=== PATIENT | male | born 1990 | race Caucasian/White ===

== ENCOUNTER 2021-10-18 10:00 | Observation (INO) | payer OTHER, SELFPAY ==
[2021-10-18 10:04] VITALS: BP 158/92; PULSE 78; RESP 19; TEMP 36.6; O2SAT 98; BMI 20.2
[2021-10-18 12:41] LABS: MANUAL DIFF FLAG NO
[2021-10-18 12:45] LABS: Basophils Percent Auto 0.1 % (0-2); Eosinophils Percent Auto 0.3 % (0-4); Hematocrit 46.4 % (42.0-52.0); Hemoglobin 15.6 g/dl (14.0-18.0); Imm Gran Abs Auto 0.05 X10*3/uL (0.00-0.03); Imm Gran Pct Auto 0.3 % (0.0-0.4); Lymphocytes Absolute Auto 1.9 X10*3/uL (1.2-4.9); Lymphocytes Percent Auto 12.5 % (20-40); Mean Corpuscular HGB Conc 33.6 g/dl (31.0-36.0); Mean Corpuscular Hemoglobin 29.5 pg (27.0-33.0); Mean Corpuscular Volume 87.9 fL (80.0-98.0); Mean Platelet Volume 10.6 fL (9.4-12.4); Monocytes Absolute Auto 1.1 X10*3/uL (0.1-1.2); Monocytes Percent Auto 6.9 % (2-11); Neutrophils Absolute Auto 12.3 x10*3/uL (2.0-8.3); Neutrophils Percent Auto 79.9 % (45-73); Platelet Count 258 X10*3/uL (160-400); Red Blood Count 5.28 X10*6/uL (4.60-5.80); Red Cell Distribution Width 14.1 % (11.0-16.0); White Blood Count 15.4 X10*3/uL (4.8-10.8)
[2021-10-18 13:00] LABS: Alanine Aminotransferase 14 U/L (0-40); Albumin Level 5.6 g/dL (3.5-5.0); Alkaline Phosphatase 127 U/L (39-117); Anion Gap 19 (12-20); Aspartate Amino Transferase 37 U/L (5-37); Bilirubin Direct 0.5 mg/dL (0.0-0.5); Bilirubin Total 1.2 mg/dL (0.0-1.0); Blood Urea Nitrogen 38 mg/dL (9-16); Calcium 10.6 mg/dL (8.4-10.2); Carbon Dioxide 26 mmol/L (22-29); Chloride 90 mmol/L (96-108); Creatinine Clr Calc Pharmacy 38.1; Estimated Glomerular Filt Rate 29; Glucose Random 116 mg/dL (60-115); Lipase 18 U/L (8-78); Potassium 4.3 mmol/L (3.3-5.1); Sodium 131 mmol/L (135-145)
--- NOTE | 2021-10-18 13:36 | ED.GENADULT ---
HPI - General Adult General Chief complaint: General Medical Stated complaint: Dehydrated Work Comp Time Seen by Provider: 10/18/21 13:36 Source: patient Mode of arrival: ambulatory Limitations: no limitations History of Present Illness HPI narrative: Patient is a 31 year old male presenting to the emergency department today with nausea/vomiting after being out on a hot roof all day yesterday. Patient states that he was etta all day yesterday and got very hot, causing him to vomit and he is continuing to have nausea. Patient denies any dizziness, lightheadedness, abdominal pain, fever, chills, blurry vision, double vision, loss of vision, chest pain, difficulty breathing, shortness of breath, back pain, night sweats, pain with urination, increased urinary frequency, increased urinary urgency, blood in his urine or stool, syncope or a near syncopal episode, recent trauma or falls, bowel incontinence, bladder incontinence, bowel retention, bladder retention, or any other complaints at this time. Patient states that he does not have any medical history. Onset (ago): day(s) (1) Severity: mild Severity scale (1-10): 3 Relieving factors: none Exacerbating factors: none Associated symptoms: nausea/vomiting Treatments prior to arrival: none Related Data Home Medications Medication Instructions Recorded Confirmed No Known Home Meds 10/18/21 10/18/21 Allergies Allergy/AdvReac Type Severity Reaction Status Date / Time No Known Allergies Allergy Verified 10/18/21 13:37 Review of Systems Constitutional: Constitutional: Reports no additional constitutional complaints, Denies chills, Denies fever(s) and Denies night sweats Eyes: Eyes: Reports no additional eye complaints, Denies blurry vision, Denies change in vision, Denies diplopia, Denies eye discharge, Denies loss of vision and Denies eye pain ENT: Denies dizziness Cardiovascular: Cardiovascular: Reports no additional cardiovascular complaints, Denies chest pain, Denies lightheadedness, Denies Loss of Consciousness and Denies dyspnea Respiratory: Respiratory: Reports no additional respiratory complaints and Denies dyspnea Gastrointestinal: Gastrointestinal: Reports no additional gastrointestinal complaints, Denies abdominal pain, Denies melena, Denies hematochezia, Denies change in bowel habits, Denies change in stool character, Reports nausea and Reports vomiting Genitourinary: Genitourinary: Reports no additional male genitourinary complaints, Denies hematuria, Denies oliguria, Denies difficulty urinating, Denies dysuria, Denies urinary frequency, Denies urinary hesitancy, Denies urinary incontinence and Denies urinary urgency Musculoskeletal: Musculoskeletal: Reports no additional musculoskeletal complaints, Denies numbness and Denies tingling Neurologic: Denies dizziness, Denies loss of vision, Denies numbness and Denies tingling Psychiatric: Psychiatric: Reports no additional psychiatric complaints Endocrine: Endocrine: Reports no additional endocrine complaints Hematologic/Lymphatic: Hematologic/Lymphatic: Reports no additional hematologic/lymphatic complaints Allergic/Immunologic: Allergic/Immunologic: Reports no additional allergic/immunologic complaints [facility] Past Medical History Attestation statement: The following information was validated with the patient. Source: old records reviewed Social History Social History Alcohol intake: unknown Patient Tobacco Use Status: Current everyday Tobacco user Smoked in Last 30 Days: Yes Use of substances other than those prescribed or required for medical reasons: No Advance Directives: No Advance Directives Information Provided: No Physical Exam ED Vital Signs: Vital Signs - 24 hr 10/18/21 10:04 10/18/21 14:16 Temperature 98 F 98.6 F Pulse Rate 78 73 Respiratory Rate 19 18 Blood Pressure 158/92 H 159/69 H Pulse Oximetry 98 100 Oxygen Delivery Method Room Air Room Air BMI result Body Mass Index 20.2 Const General: cooperative, no acute distress, alert and awake Nutritional Appearance: well nourished Orientation/consciousness: patient oriented x3 Limitations: no limitations [facility] Head: Yes normal to inspection and Yes atraumatic Ears: hearing grossly normal bilaterally and external ears normal General nose exam: Normal external nose present, no nasal discharge noted and no epistaxis Face and sinus: Yes normal facial exam, No abrasion and No laceration Mouth: Normal oral and palatal mucosa present, no drooling and no muffled voice Eyes General: appearance normal, both eyes and all related structures Periorbital: periorbital findings normal Eyelids: Yes eyelids normal Conjunctivae: conjunctivae normal Pupils: Equal, round and reactive pupils present EOM: EOMs intact bilaterally Neck Neck: Yes normal visual inspection, Yes full ROM and Yes no lymphadenopathy Chest Chest palpation & inspection: normal inspection of the chest Resp Effort & Inspection: normal respiratory effort and able to speak in complete sentences Auscultation: clear to auscultation bilaterally Cardio Rate: regular rate Rhythm: regular rhythm GI Inspection: Yes normal to inspection Palpation (GI): Soft to palpation, not firm, nontender and no guarding Neuro General: patient oriented x3 and moves all extremities Cranial nerves: Yes Equal, round and reactive pupils present Cognition (Neuro): normal cognition Motor exam (neuro): 5/5 motor strength present throughout Sensory Exam: Normal double simultaneous stimulation for sensation Coordination: [id number] test normal Extrem General: Yes normal to inspection, Yes full ROM and Yes capillary refill normal Psych Appearance: grossly normal Mental Status: mental status grossly normal Affect: normal affect Attitude: cooperative Thought process: Normal thought process present Thought content: Normal thought content present Insight: Good insight present (Psych) Medical Decision Making MDM Narrative Medical decision making narrative: Patient is a 31 year old male presenting to the emergency department today with nausea and vomiting. Patient's physical exam was unremarkable. Patient's blood work showed an elevated WBC count at 15.4, an elevated BUN of 38, and an elevated creatinine of 2.56. Patient's sodium was decreased at 131. Patient's urine showed no acute process. Patient's EKG was unremarkable. I explained my physical exam findings as well as all test results to the patient. I answered all questions asked by the patient. Patient received IV fluids and IV Zofran which he stated helped his symptoms significantly. I spoke to Dr. Smith who agreed to hospital admission. Patient verbalized agreement and understanding with this treatment plan and admission. Differential Diagnosis Differential Diagnosis: ILYA, dehydration, overheated Medical Records Medical records reviewed: Yes I reviewed the patient's medical records. Lab Data Lab results reviewed: Yes I reviewed the patient's lab results. Result diagrams: 10/18/21 12:29 10/18/21 12:29 Labs: Lab Results 10/18/21 10/18/21 Range/Units 12:29 12:29 WBC 15.4 H (4.8-10.8) X10*3/uL RBC 5.28 (4.60-5.80) X10*6/uL Hgb 15.6 (14.0-18.0) g/dl Hct 46.4 (42.0-52.0) % MCV 87.9 (80.0-98.0) fL MCH 29.5 (27.0-33.0) pg MCHC 33.6 (31.0-36.0) g/dl RDW 14.1 (11.0-16.0) % Plt Count 258 (160-400) X10*3/uL MPV 10.6 (9.4-12.4) fL Immature Gran % (Auto) 0.3 (0.0-0.4) % Neut % (Auto) 79.9 H (45-73) % Lymph % (Auto) 12.5 L (20-40) % [place] % (Auto) 6.9 (2-11) % Eos % (Auto) 0.3 (0-4) % Baso % (Auto) 0.1 (0-2) % Lymph # (Auto) 1.9 (1.2-4.9) X10*3/uL [place] # (Auto) 1.1 (0.1-1.2) X10*3/uL Eos # (Auto) 0.0 (0.0-0.4) X10*3/uL Baso # (Auto) 0.0 (0.0-0.2) X10*3/uL Abs Immat Gran (auto) 0.05 H (0.00-0.03) X10*3/uL Absolute Neuts (auto) 12.3 H (2.0-8.3) x10*3/uL Absolute Nucleated RBC 0.000 (0.0-0.012) X10*3/uL Nucleated RBC % (auto) 0.0 (0.0-0.2) /100WBC Sodium 131 L (135-145) mmol/L Potassium 4.3 (3.3-5.1) mmol/L Chloride 90 L (96-108) mmol/L Carbon Dioxide 26 (22-29) mmol/L Anion Gap 19 (12-20) BUN 38 H (9-16) mg/dL Creatinine 2.56 H (0.5-1.4) mg/dL Estim Creat Clear Calc 38.1 Estimated GFR 29 Random Glucose 116 H (60-115) mg/dL Calcium 10.6 H (8.4-10.2) mg/dL Total Bilirubin 1.2 H (0.0-1.0) mg/dL Direct Bilirubin 0.5 (0.0-0.5) mg/dL AST 37 (5-37) U/L ALT 14 (0-40) U/L Alkaline Phosphatase 127 H (39-117) U/L Total Protein 9.0 H (6.5-8.0) g/dL Albumin 5.6 H (3.5-5.0) g/dL Lipase 18 (8-78) U/L ECG Data Attestation: I personally reviewed and interpreted this ECG as follows: Prior ECG tracings: not available for review Interpretation: Vent. Rate: 072 BPM ? ? Atrial Rate: 072 BPM P-R Int: 108 ms? QRS Dur: 086 ms QT Int: 370 ms ? ? ? P-R-T Axes: 057 050 045 degrees QTc Int: 405 ms ? Sinus rhythm with short NM Early repolarization Otherwise normal ECG No previous ECGs available DD/ [id number] Critical Care Time Critical Care Time Critical Care Time: Yes Total Critical Care Time: 30 Attestation: I spent 30 minutes of Critical Care Time with this patient. This does not include time spent on separately reported billable procedures. Discharge Plan Discharge Clinical Impression: Acute kidney injury, Acute dehydration Patient Disposition: Admitted As Inpatient Prescriptions: No Action No Known Home Meds Print Language: Croatian
--- NOTE | 2021-10-18 13:48 | PC.NURSE ---
18 r ac placed and ns bolus started, alert, skin wpd, speech clear, was eating chips and water in mwr
--- NOTE | 2021-10-18 14:07 | ECG_ITS ---
Test Reason : abd pain Blood Pressure : / mmHG Vent. Rate : 072 BPM Atrial Rate : 072 BPM P-R Int : 108 ms QRS Dur : 086 ms QT Int : 370 ms P-R-T Axes : 057 050 045 degrees QTc Int : 405 ms Sinus rhythm with short FL Early repolarization Otherwise normal ECG No previous ECGs available Referred By: Carmencita Pisano Electronically Signed By:SAADIA FRAZIER MD
[2021-10-18] MEDS: ondansetron HCL 4 MG/2 ML VIAL IVPUSH (14:10)
[2021-10-18] MEDS: 0.9 % Sodium Chloride 1,000 ML 999 ML IV (14:11)
[2021-10-18 14:16] VITALS: BP 159/69; PULSE 73; RESP 18; TEMP 37; O2SAT 100
--- NOTE | 2021-10-18 14:37 | PHA.MEDREC ---
MED REC COMPLETE, PT NOT ON ANY MEDICATIONS Pharmacy Consult ? Medication Reconciliation Pharmacy has completed the medication reconciliation.
[2021-10-18 17:09] VITALS: BP 142/79; PULSE 78; RESP 16; TEMP 36.7; O2SAT 98
--- NOTE | 2021-10-18 17:26 | P.HPHOSP_ITS ---
History of Present Illness Date of Service: 10/18/21 Chief Complaint: leg cramps this is a 31-year-old otherwise healthy male who presents to the hospital with complaints of leg cramps, bilateral lower abdominal pain, and generally not feeling well with a headache and blurry vision. 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 On arriving home around 17:00 yesterday had multiple episodes of nausea vomiting and has severe cramping in his legs that made it hard for him to sleep. He went to work today, worked for about 4-5 hours and just felt worse therefore came to the hospital. he was started on IV fluids, reports that he is feeling better currently but still has some cramps in his feet. He otherwise denies any headache at this time, no chest pain, no shortness of breath, abdominal pain has not resolved, no diarrhea constipation, reports that he had decreased urine output yesterday and this morning but has now improved after IV fluids. On arrival to the ED hemodynamically stable with no significant abnormal vitals except for an elevated blood pressure 158/92 Labs are significant for WBC count of 15.4, sodium of 131, creatinine of 2.56, BUN of 38, with no previous for comparison CPK of 841. patient started on IV fluids will be admitted for further management Review of Systems Review of Systems: Yes all other systems are reviewed and are negative [facility] Medical History (Updated 10/18/21 @ 18:22 by Tasha Sears MD) No pertinent past medical history Family History (Updated 10/18/21 @ 18:22 by Tasha Sears MD) Other No family history of coronary artery disease Surgical History (Updated 10/18/21 @ 18:22 by Tasha Sears MD) No pertinent past surgical history Social History Alcohol intake: unknown Patient Tobacco Use Status: Current everyday Tobacco user Smoked in Last 30 Days: Yes Use of substances other than those prescribed or required for medical reasons: No Advance Directives: No Advance Directives Information Provided: No Meds Allergies Allergy/AdvReac Type Severity Reaction Status Date / Time No Known Allergies Allergy Verified 10/18/21 13:37 Active Medications: Current Medications Sodium Chloride (Ns) 1,000 mls @ 999 mls/hr IV .Q1H1M ONE Stop: 10/18/21 18:24 Home Medications Medication Instructions Recorded Confirmed Last Taken Type No Known Home Meds 10/18/21 10/18/21 Unknown History Physical Exam Vital Signs and Narrative: Vital Signs: Last Vital Signs Temp 98.1 F 10/18/21 17:09 Pulse 78 10/18/21 17:09 Resp 16 10/18/21 17:09 BP 142/79 H 10/18/21 17:09 Pulse Ox 98 10/18/21 17:09 O2 Del Method 10/18/21 17:09 BMI result Body Mass Index 20.2 Const: General: cooperative and no acute distress Orientation/consciousness: patient oriented x3 Eyes: General: appearance normal, both eyes and all related structures Resp: Effort & Inspection: normal respiratory effort Auscultation: clear to auscultation bilaterally Cardio: Rate: regular rate Rhythm: regular rhythm GI: Other: abdomen is nontender, no rebound or guarding Palpation (GI): Soft to palpation Auscultation: normal bowel sounds Skin: General skin exam: no rashes or lesions noted Neuro: General: patient oriented x3 Cognition (Neuro): normal cognition Extrem: General: Yes normal to inspection and Yes no pedal edema Results Labs CBC and Chem 7: 10/18/21 12:29 10/18/21 17:34 Labs: Laboratory Results - last 24 hr 10/18/21 10/18/21 12:29 12:29 MCV 87.9 MCH 29.5 MCHC 33.6 RDW 14.1 Plt Count 258 MPV 10.6 Immature Gran % (Auto) 0.3 Neut % (Auto) 79.9 H Lymph % (Auto) 12.5 L [place] % (Auto) 6.9 Eos % (Auto) 0.3 Baso % (Auto) 0.1 Lymph # (Auto) 1.9 [place] # (Auto) 1.1 Eos # (Auto) 0.0 Baso # (Auto) 0.0 Abs Immat Gran (auto) 0.05 H Absolute Neuts (auto) 12.3 H Absolute Nucleated RBC 0.000 Nucleated RBC % (auto) 0.0 Anion Gap 19 Estim Creat Clear Calc 38.1 Estimated GFR 29 Random Glucose 116 H Calcium 10.6 H Total Bilirubin 1.2 H Direct Bilirubin 0.5 AST 37 ALT 14 Alkaline Phosphatase 127 H Total Protein 9.0 H Albumin 5.6 H Lipase 18 Assessment and Plan (1) Acute kidney injury: Status: Acute (2) Acute dehydration: Status: Acute (3) Rhabdomyolysis: Status: Acute Plan this is a healthy 31-year-old male 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
[2021-10-18] MEDS: Nicotine 21 MG PATCH.TD24 TRANSDERMA (17:38)
[2021-10-18] MEDS: 0.9 % Sodium Chloride 1,000 ML 100 ML IVCONT (17:39)
[2021-10-18 17:59] LABS: Anion Gap 16 (12-20); Blood Urea Nitrogen 32 mg/dL (9-16); Calcium 9.3 mg/dL (8.4-10.2); Carbon Dioxide 25 mmol/L (22-29); Chloride 97 mmol/L (96-108); Creatinine Clr Calc Pharmacy 54.6; Estimated Glomerular Filt Rate 44; Glucose Random 112 mg/dL (60-115); Potassium 4.3 mmol/L (3.3-5.1); Sodium 134 mmol/L (135-145)
[2021-10-18 19:35] VITALS: BP 143/69; PULSE 76; RESP 16; TEMP 36.6; O2SAT 98
[2021-10-18 21:11] VITALS: BP 122/53; PULSE 62; RESP 16; TEMP 36.7; O2SAT 98
[2021-10-18 21:46] LABS: Appearance Urine CLEAR; Color Urine YELLOW; Glucose Urine UA NEG (NEG); Leukocyte Esterase Urine NEG (NEG); Nitrite Urine NEG (NEG); Specific Gravity - Urine 1.025 (1.005-1.025); UACC Culture Trigger NO; Urine Blood TRACE (NEG); Urine Ketones NEG (NEG); Urine Protein NEG (NEG-TRACE)
[2021-10-18 21:53] LABS: RBC Urine 0-2 /HPF (0); Squamous Epithelial Cell Urine TRACE /LPF
[2021-10-18 22:06] LABS: Osmolality Urine 664 mosm/kg (373-1093)
[2021-10-18 23:48] VITALS: BP 130/59; PULSE 62; RESP 18; TEMP 36.9; O2SAT 99
[2021-10-19 01:57] LABS: COVID-19 Test Negative (Negative)
[2021-10-19] MEDS: 0.9 % Sodium Chloride 1,000 ML 100 ML IVCONT (03:57)
[2021-10-19 06:55] VITALS: BP 146/92; PULSE 64; RESP 16; O2SAT 98
[2021-10-19] MEDS: 0.9 % Sodium Chloride Flush 3 ML SYRINGE IVFLUSH (08:22)
--- NOTE | 2021-10-19 08:24 | PC.NURSE ---
patient a/ox4. pearrla . lungs clear . skin pink warm and dry . no c/o dizziness or nausea . patient resting comfortably . aware of plan of care for admission .
--- NOTE | 2021-10-19 10:40 | MHC.CM.PN ---
Met with patient in regards to discharge planning. Patient lives with his mother, ambulates independently and had no services prior to coming to the hospital. No services anticipated to be needed because patient is not homebound. Patient denies having a PCP. Patient is only in the area for work for the next week. Patient denies having a HCP. Informatin provided. Patient not interested in completing one at this time. Patient's coworker will transport patient home when medically stable. Obs notice explained and signed. Continue to monitor for d/c needs.
[2021-10-19 11:05] VITALS: BP 138/77; PULSE 69; RESP 16; O2SAT 97
[2021-10-19 11:15] LABS: Anion Gap 11 (12-20); Blood Urea Nitrogen 18 mg/dL (9-16); Carbon Dioxide 29 mmol/L (22-29); Chloride 101 mmol/L (96-108); Creatinine Clr Calc Pharmacy 114.9; Estimated Glomerular Filt Rate > 60; Glucose Random 101 mg/dL (60-115); Potassium 5.1 mmol/L (3.3-5.1); Sodium 136 mmol/L (135-145)
--- NOTE | 2021-10-19 12:08 | P.DS_ITS ---
DS: Providers Provider Date of Service: 10/19/21 Date of admission: 10/18/21 17:24 Primary care physician: None Physician DS: Diagnosis Discharge Diagnosis (1) Acute kidney injury: Status: Acute (2) Acute dehydration: Status: Acute (3) Rhabdomyolysis: Status: Acute DS: Summary Hospital Course Hospital Course: Admission note HPI ?this is a 31-year-old otherwise healthy male who presents to the hospital with complaints of leg cramps, bilateral lower abdominal pain, and generally not feeling well with a headache and blurry vision.? 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 On arriving home around 17:00 yesterday had multiple episodes of nausea vomiting and has severe cramping in his legs that made it hard for him to sleep.? He went to work today, worked for about 4-5 hours and just felt worse therefore came to the hospital.? he was started on IV fluids, reports that he is feeling better currently but still has some cramps in his feet. ? He otherwise denies any headache at this time, no chest pain, no shortness of breath, abdominal pain has not resolved,? no diarrhea constipation, reports that he had decreased urine output yesterday and this morning but has now improved after IV fluids. ? On arrival to the ED hemodynamically stable with no significant abnormal vitals except for an elevated blood pressure 158/92 Labs are significant for WBC count of 15.4, sodium of 131, creatinine of 2.56, BUN of 38, with no previous for comparison CPK of 841. ?patient started on IV fluids will be admitted for further management Hospital course The patient was admitted to the hospital for treatment of acute kidney injury secondary to dehydration from sun exposure for prolonged time. He was treated mainly with IV fluid and pain medication with good response as his kidney function and electrolyte abnormalities resolved. Noted to have mildly elevated CPK at time of admission. He was able to ambulate with resolution of pain and was able to tolerate diet. Requested to be discharged as he has to go back to work by tomorrow. Advised to drink plenty of water and avoid direct sun exposure and try to use precautions as much as he can. Drink plenty of water during the day, avoid direct sun exposure, use protection Use Tylenol as needed for pain Time Spent with Patient Time attestation: Total time spent providing and/or coordinating discharge services: Discharge coordination time: Greater than 30 minutes Quality: Safe Use of Opioids Does Pt have an Active Cancer Diagnosis on the Problem List?: No Quality: Stroke Does the patient have a stroke diagnosis?: No Physical Exam Vital Signs: Vital Signs: Last Vital Signs Temp 98.4 F 10/18/21 23:48 Pulse 69 10/19/21 11:05 Resp 16 10/19/21 11:05 BP 138/77 10/19/21 11:05 Pulse Ox 97 10/19/21 11:05 O2 Del Method 10/19/21 11:05 BMI result Body Mass Index 20.2 DS: Data Data Completed and Pending Labs on day of discharge: Laboratory Results - last 24 hr 10/18/21 10/18/21 10/18/21 12:29 12:29 12:29 WBC 15.4 H RBC 5.28 Hgb 15.6 Hct 46.4 MCV 87.9 MCH 29.5 MCHC 33.6 RDW 14.1 Plt Count 258 MPV 10.6 Immature Gran % (Auto) 0.3 Neut % (Auto) 79.9 H Lymph % (Auto) 12.5 L [place] % (Auto) 6.9 Eos % (Auto) 0.3 Baso % (Auto) 0.1 Lymph # (Auto) 1.9 [place] # (Auto) 1.1 Eos # (Auto) 0.0 Baso # (Auto) 0.0 Abs Immat Gran (auto) 0.05 H Absolute Neuts (auto) 12.3 H Absolute Nucleated RBC 0.000 Nucleated RBC % (auto) 0.0 Sodium 131 L Potassium 4.3 Chloride 90 L Carbon Dioxide 26 Anion Gap 19 BUN 38 H Creatinine 2.56 H Estim Creat Clear Calc 38.1 Estimated GFR 29 Random Glucose 116 H Calcium 10.6 H Total Bilirubin 1.2 H Direct Bilirubin 0.5 AST 37 ALT 14 Alkaline Phosphatase 127 H Total Creatine Kinase 841 H Total Protein 9.0 H Albumin 5.6 H Lipase 18 Urine Color Urine Appearance Urine pH Ur Specific [place] Urine Protein Urine Glucose (UA) Urine Ketones Urine Blood Urine Nitrite Ur Leukocyte Esterase Urine RBC Urine WBC Ur Squamous Epith Cells Urine Bacteria Urine Osmolality COVID-19 (YARA) COVID-19 Clin Com 07/03/3010/18/21 10/18/21 17:34 21:37 21:37 WBC RBC Hgb Hct MCV MCH MCHC RDW Plt Count MPV Immature Gran % (Auto) Neut % (Auto) Lymph % (Auto) [place] % (Auto) Eos % (Auto) Baso % (Auto) Lymph # (Auto) [place] # (Auto) Eos # (Auto) Baso # (Auto) Abs Immat Gran (auto) Absolute Neuts (auto) Absolute Nucleated RBC Nucleated RBC % (auto) Sodium 134 L Potassium 4.3 Chloride 97 Carbon Dioxide 25 Anion Gap 16 BUN 32 H Creatinine 1.79 H Estim Creat Clear Calc 54.6 Estimated GFR 44 Random Glucose 112 Calcium 9.3 D Total Bilirubin Direct Bilirubin AST ALT Alkaline Phosphatase Total Creatine Kinase Total Protein Albumin Lipase Urine Color YELLOW Urine Appearance CLEAR Urine pH 6.0 Ur Specific [place] 1.025 Urine Protein NEG Urine Glucose (UA) NEG Urine Ketones NEG Urine Blood TRACE Urine Nitrite NEG Ur Leukocyte Esterase NEG Urine RBC 0-2 Urine WBC 1-4 Ur Squamous Epith Cells TRACE Urine Bacteria NONE Urine Osmolality 664 COVID-19 (YARA) [email or web address] 10/19/21 10/19/21 01:32 10:48 WBC RBC Hgb Hct MCV MCH MCHC RDW Plt Count MPV Immature Gran % (Auto) Neut % (Auto) Lymph % (Auto) [place] % (Auto) Eos % (Auto) Baso % (Auto) Lymph # (Auto) [place] # (Auto) Eos # (Auto) Baso # (Auto) Abs Immat Gran (auto) Absolute Neuts (auto) Absolute Nucleated RBC Nucleated RBC % (auto) Sodium 136 Potassium 5.1 Chloride 101 Carbon Dioxide 29 Anion Gap 11 L BUN 18 H Creatinine 0.85 Estim Creat Clear Calc 114.9 Estimated GFR > 60 Random Glucose 101 Calcium 9.0 Total Bilirubin Direct Bilirubin AST ALT Alkaline Phosphatase Total Creatine Kinase Total Protein Albumin Lipase Urine Color Urine Appearance Urine pH Ur Specific [place] Urine Protein Urine Glucose (UA) Urine Ketones Urine Blood Urine Nitrite Ur Leukocyte Esterase Urine RBC Urine WBC Ur Squamous Epith Cells Urine Bacteria Urine Osmolality COVID-19 (YARA) Negative COVID-19 [employer] Com See Note Discharge Plan Discharge Patient Disposition: Home, Self-Care Discharge Diagnosis: Acute kidney injury Dehydration Referrals: Physician,None [Primary Care Provider] - 1 Week Discharge Medications: No Action No Known Home Meds Discharge Orders: Discharge Order (Routine); Ordered 10/19/21 Ordered By: Nick Sam Activity on Discharge: As tolerated Stand Alone Forms: Patient Portal Discharge page Print Language: Upper Sorbian Care Plan Goals: Read below Health Concerns: Read below Plan of Treatment: Read below Assessment: You were admitted to the hospital for treatment of acute kidney injury from dehydration. You were treated with IV fluid and pain medication with good response as your kidneys improved back to normal. Drink plenty of water during the day, avoid direct sun exposure, use protection Use Tylenol as needed for pain
== END 2021-10-19 13:53 | disposition home or self-care (01) ==
LOC: HO.ED 16:49 → HO.EDOVER 17:38
PROVIDERS: Physician Assistant Medical; Admitting Provider Internal Medicine; Emergency Provider Emergency Medicine; Visit Provider Student in an Organized Health Care Education/Training Program
DX: E86.0 Dehydration (principal); N17.9 Acute kidney failure, unspecified; M62.82 Rhabdomyolysis; R11.2 Nausea with vomiting, unspecified; R10.9 Unspecified abdominal pain; F17.200 Nicotine dependence, unspecified, uncomplicated; Z71.6 Tobacco abuse counseling; Z20.822 Contact with and (suspected) exposure to COVID-19; Z79.899 Other long term (current) drug therapy
CPT/HCPCS: 36415; 80048; 80076; 81001; 82550; 83690; 83935; 85025; 87635; 93005; 96361; 96374; 96376; 99218; 99285; J2405